=== PATIENT | female | born 1980 | race Caucasian/White ===

== ENCOUNTER 2020-12-18 09:14 | Outpatient (CLI) | payer OTHER ==
[~2020-12-18 09:14] MED LIST: MULT-26 PO; NIFE10CA PO; PANT40TA3 PO
[2020-12-18 09:57] LABS: ANION GAP 10 mmol/L (5-15); CALCIUM 9.8 mg/dL (8.5-10.1); CHLORIDE 99 mmol/L (98-107)
[2020-12-18 10:00] LABS: ALANINE AMINOTRANSFERASE 40 U/L (12-78); ALKALINE PHOSPHATASE 59 U/L (45-117); BILIRUBIN,TOTAL 0.6 mg/dL (0.2-1.0); CREATININE 1.24 mg/dL (0.55-1.02); TOTAL PROTEIN 8.3 g/dL (6.4-8.2)
== END 2020-12-18 23:59 | disposition home or self-care (01) ==
LOC: LAB 09:14
DX: E11.22 Type 2 diabetes mellitus with diabetic chronic kidney disease (principal); E66.01 Morbid (severe) obesity due to excess calories; R74.01 Elevation of levels of liver transaminase levels; N18.4 Chronic kidney disease, stage 4 (severe)
CPT/HCPCS: 36415; 80053; 83036